=== PATIENT | female | born 2000 | race Caucasian/White ===

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

== ENCOUNTER 2020-03-22 11:15 | Observation (INO) | payer MEDICAID ==
[2020-03-22] MEDS ORDERED: PREN-96 PO (11:34)
== END 2020-03-22 12:22 | disposition home or self-care (01) ==
LOC: LDRP 11:15
PROVIDERS: ADMIT Specialist; ATTEND Specialist
DX: O62.9 Abnormality of forces of labor, unspecified (principal); O99.323 Drug use complicating pregnancy, third trimester; F12.90 Cannabis use, unspecified, uncomplicated; Z3A.37 37 weeks gestation of pregnancy
CPT/HCPCS: 59025; 81002; G0378